=== PATIENT | female | born 1985 | race Caucasian/White ===

== ENCOUNTER → 2017-08-14 | Outpatient (REF) | payer BC ==
[2017-08-16 14:28] LABS: HPV HYBRID CAPTURE II Positive (Negative)
== END ==
LOC: M SFHCWAGY 16:03
DX: Z12.4 Encounter for screening for malignant neoplasm of cervix (principal)
CPT/HCPCS: G0123

== ENCOUNTER 2018-02-02 11:36 | Emergency (ER) | payer BC, OTHER ==
[2018-02-02 12:19] LABS: BASO % 0.2 % (0.0-1.0); EOS # 0.1 10^3/uL (0.0-0.50); EOS % 0.8 % (0.0-3.0); HEMATOCRIT 44.9 % (36.0-47.0); HEMOGLOBIN 15.2 g/dl (12.0-15.5); IMMATURE GRANULOCYTE % 0.3 % (0-3.0); LYMPH # 3.5 10^3/uL (1.5-4.5); LYMPH % 28.4 % (24.0-44.0); MEAN CORPUSCULAR HEMOGLOBIN 32.9 pg (27.0-33.0); MEAN CORPUSCULAR HGB CONC 33.9 g/dl (32.0-36.5); MEAN CORPUSCULAR VOLUME 97.2 fl (80.0-96.0); MONO # 0.6 10^3/uL (0.0-0.8); MONO % 5.2 % (0.0-5.0); NEUTROPHILS # 7.9 10^3/uL (1.8-7.7); NEUTROPHILS % 65.1 % (36.0-66.0); PLATELET COUNT, AUTOMATED 235 10^3/uL (150-450); RED BLOOD COUNT 4.62 10^6/uL (4.00-5.40); RED CELL DISTRIBUTION WIDTH 12.2 % (11.5-14.5); WHITE BLOOD COUNT 12.2 10^3/uL (4.0-10.0)
[2018-02-02 12:21] LABS: CONTROL LINE UCG INT CTR LINE PRESENT; URINE PREG TEST NEGATIVE (NEGATIVE)
[2018-02-02 12:25] LABS: CALCIUM OXALATE CRYSTALS RFX SMALL; KETONE, URINE AUTO RFX NEGATIVE (NEGATIVE); LEUKOCYTE ESTERASE UR AUTO RFX NEGATIVE (NEGATIVE); MUCUS, URINE RFX MODERATE (NEGATIVE); NITRITE, URINE AUTO RFX NEGATIVE (NEGATIVE); RBC, URINE AUTO RFX TNTC /HPF (0-3); SPECIFIC GRAVITY UR AUTO RFX 1.025 (1.002-1.035); SQUAM EPITHELIAL CELL UR AURFX 0 /HPF (0-6); WBC, URINE AUTO RFX 3 /HPF (0-3)
[2018-02-02 12:46] LABS: ALBUMIN 4.3 GM/DL (3.2-5.2); ALBUMIN/GLOBULIN RATIO 1.19 (1.00-1.93); ALKALINE PHOSPHATASE 66 U/L (45-117); ALT/SGPT 21 U/L (12-78); AMYLASE 46 U/L (25-115); ANION GAP 8 MEQ/L (8-16); AST/SGOT 16 U/L (7-37); BILIRUBIN,DIRECT < 0.1 MG/DL (0.0-0.2); BILIRUBIN,TOTAL 0.3 MG/DL (0.2-1.0); BLOOD UREA NITROGEN 13 MG/DL (7-18); CARBON DIOXIDE LEVEL 26 MEQ/L (21-32); CHLORIDE LEVEL 106 MEQ/L (98-107); CREATININE FOR GFR 0.76 MG/DL (0.55-1.30); GLOMERULAR FILTRATION RATE > 60.0 (>60); GLUCOSE, FASTING 101 MG/DL (70-100); LIPASE 122 U/L (73-393); POTASSIUM SERUM 3.6 MEQ/L (3.5-5.1); SODIUM LEVEL 140 MEQ/L (136-145); TOTAL PROTEIN 7.9 GM/DL (6.4-8.2)
[2018-02-02] MEDS: GASTROGRAFIN SOLUTION 30ML PO ×2 (13:00→13:32)
[2018-02-02] MEDS ORDERED: ISOVUE-370 76% 100ML VIAL (Q9967) As Ordered (14:24)
== END 2018-02-02 16:03 | disposition home or self-care (01) ==
LOC: M ED 11:36
DX: N20.0 Calculus of kidney (principal); Z88.0 Allergy status to penicillin; Z88.8 Allergy status to other drugs, medicaments and biological substances; F17.210 Nicotine dependence, cigarettes, uncomplicated
CPT/HCPCS: Q9963

== ENCOUNTER → 2018-02-03 | Outpatient (REF) | payer BC ==
[~2018-02-03] MED LIST: APAP500T10 PO; CENTCHW4 PO; CIPR500T39 PO; DOXY100C37 PO; FLAG500T PO; KETO10TAB PO; KLOR10TA76 PO; MAGN400C PO; NITR100C2 PO; OXYC1TAB23 PO; POTA10808; SENN1TAB2 PO; SIME180C PO; TAMS1CAP17 PO
== END ==
LOC: M LAB REF 09:24 → MERGE 09:24
PROVIDERS: ATTEND Emergency Medicine
DX: N20.0 Calculus of kidney (principal)

== ENCOUNTER 2018-02-05 09:20 | Day surgery (SDC) | payer BC ==
[2018-02-05] MEDS ORDERED: CIPROFLOXACIN 400 MG in APPROPRIATE DILUENT 1 EA IV (10:30)
[2018-02-05 10:59] LABS: PROTHROMBIN TIME 13.3 SECONDS (12.1-14.4)
[2018-02-05 11:00] LABS: PARTIAL THROMBOPLASTIN TIME 31.6 SECONDS (25.4-37.6)
[2018-02-05 11:14] LABS: CONTROL LINE UCG INT CTR LINE PRESENT; URINE PREG TEST NEGATIVE (NEGATIVE)
[2018-02-05] MEDS ORDERED: PROPOFOL 200 MG/20 ML VIAL As Ordered (12:39)
[2018-02-05] MEDS ORDERED: LIDOCAINE 2% INJ 100 MG/5 ML SDV (FOR ANES.) As Ordered (12:39)
[2018-02-05] MEDS ORDERED: dexameTHASONE 4 MG/ML 1ML VIAL (J1100) As Ordered (12:39)
[2018-02-05] MEDS ORDERED: ONDANSETRON 4MG/2ML VIAL (J2405) As Ordered (12:39)
[2018-02-05] MEDS ORDERED: MIDAZOLAM INJ 2 MG/2 ML VIAL (J2250) As Ordered (12:39)
[2018-02-05] MEDS ORDERED: fentaNYL 100 MCG/2 ML INJECTION (J3010) As Ordered (12:39)
[2018-02-05] MEDS ORDERED: KETAMINE HCL 200 MG/20 ML VIAL As Ordered (13:27)
[2018-02-05] MEDS ORDERED: LR 1,000 ML IV (14:30)
[2018-02-05] MEDS ORDERED: fentaNYL 100 MCG/2 ML INJECTION (J3010) IV (14:30)
[2018-02-05] MEDS ORDERED: PERCOCET 5MG/325MG TAB PO ×2 (14:30)
[2018-02-05] MEDS ORDERED: NORCO, ANEXSIA 5/325MG TABLET (HYDROcodone/ACETAMINOPHEN) PO (14:30)
[2018-02-05] MEDS ORDERED: ONDANSETRON 4MG/2ML VIAL (J2405) IV (14:30)
== END 2018-02-05 15:14 | disposition home or self-care (01) ==
LOC: M SDC 09:20
DX: N20.0 Calculus of kidney (principal); Z88.1 Allergy status to other antibiotic agents; Z88.8 Allergy status to other drugs, medicaments and biological substances; Z72.0 Tobacco use
CPT/HCPCS: 50590

== ENCOUNTER → 2018-02-13 | Outpatient (REF) | payer BC ==
[2018-02-13 18:18] LABS: APPEARANCE, URINE CLEAR (CLEAR); BACTERIA, URINE AUTO 1+ (NEGATIVE); BILIRUBIN, URINE AUTO NEGATIVE (NEGATIVE); BLOOD, URINE BLOOD NEGATIVE (NEGATIVE); COLOR, URINE YELLOW (YELLOW); GLUCOSE, URINE (UA) AUTO NEGATIVE (NEGATIVE); KETONE, URINE AUTO NEGATIVE (NEGATIVE); LEUKOCYTE ESTERASE, URINE AUTO 1+ (NEGATIVE); MUCUS, URINE SMALL (NEGATIVE); NITRITE, URINE AUTO NEGATIVE (NEGATIVE); PROTEIN, URINE AUTO NEGATIVE (NEGATIVE); RBC, URINE AUTO 3 /HPF (0-3); SPECIFIC GRAVITY URINE AUTO 1.015 (1.002-1.035); SQUAMOUS EPITHELIAL CELL UR AU 0 /HPF (0-6); UROBILINOGEN, URINE AUTO 0.2 mg/dL (0.0-2.0); WBC, URINE AUTO 10 /HPF (0-3)
== END ==
LOC: M SMT 16:38
PROVIDERS: ATTEND Nurse Practitioner Family
DX: R30.0 Dysuria (principal)

== ENCOUNTER 2018-02-16 12:25 | Day surgery (SDC) | payer BC ==
[~2018-02-16] VITALS: Ht 167.6 cm; Wt 59.1 kg
[~2018-02-16 12:25] MED LIST changes: -APAP500T10 PO; -CIPR500T39 PO; -KLOR10TA76 PO; -MAGN400C PO; -NITR100C2 PO; -OXYC1TAB23 PO; -POTA10808; -SENN1TAB2 PO; -SIME180C PO; -TAMS1CAP17 PO
[2018-02-16] MEDS ORDERED: NITR100C2 PO (12:38)
[2018-02-16] MEDS ORDERED: OXYC1TAB23 PO (12:38)
[2018-02-16] MEDS ORDERED: TAMS1CAP17 PO (12:38)
[2018-02-16] MEDS ORDERED: ONDANSETRON 4MG/2ML VIAL (J2405) As Ordered ONE ×2 (12:55→16:21)
[2018-02-16] MEDS ORDERED: MORPHINE 2 MG/ML 1ML SYRINGE (J2270) IV ONE (13:00)
[2018-02-16] MEDS ORDERED: KETOROLAC 30 MG/ML VIAL (J1885) IV ONE (13:00)
[2018-02-16] MEDS ORDERED: ONDANSETRON 4MG/2ML VIAL (J2405) IV ONE (13:00)
[2018-02-16 13:04] LABS: BASO % 0.3 % (0.0-1.0); EOS # 0.2 10^3/uL (0.0-0.50); EOS % 1.1 % (0.0-3.0); HEMATOCRIT 41.8 % (36.0-47.0); HEMOGLOBIN 14.1 g/dl (12.0-15.5); LYMPH # 3.6 10^3/uL (1.5-4.5); LYMPH % 25.1 % (24.0-44.0); MEAN CORPUSCULAR HEMOGLOBIN 32.6 pg (27.0-33.0); MEAN CORPUSCULAR HGB CONC 33.7 g/dl (32.0-36.5); MEAN CORPUSCULAR VOLUME 96.8 fl (80.0-96.0); MONO % 7.2 % (0.0-5.0); NEUTROPHILS # 9.4 10^3/uL (1.8-7.7); PLATELET COUNT, AUTOMATED 342 10^3/uL (150-450); RED BLOOD COUNT 4.32 10^6/uL (4.00-5.40); WHITE BLOOD COUNT 14.3 10^3/uL (4.0-10.0)
[2018-02-16 13:28] LABS: BLOOD UREA NITROGEN 10 MG/DL (7-18); CALCIUM LEVEL 8.5 MG/DL (8.5-10.1); CARBON DIOXIDE LEVEL 24 MEQ/L (21-32); CHLORIDE LEVEL 104 MEQ/L (98-107); CREATININE FOR GFR 0.86 MG/DL (0.55-1.30); GLOMERULAR FILTRATION RATE > 60.0 (>60); GLUCOSE, FASTING 125 MG/DL (70-100); POTASSIUM SERUM 3.8 MEQ/L (3.5-5.1); SODIUM LEVEL 137 MEQ/L (136-145)
[2018-02-16 13:44] LABS: URINE PREG TEST NEGATIVE (NEGATIVE)
--- NOTE | 2018-02-16 14:18 | REP ---
Clinical: Right flank pain. Technique: Axial noncontrast images from the lung bases to the pubic symphysis with coronal and sagittal re-formations. Findings: Moderate right-sided acute obstructive uropathy with hydroureteronephrosis appears to be secondary to a 7 mm calculus in the distal right ureter (images 105-108). 2 mm nonobstructing lower pole right calculus identified along with 2 mm nonobstructing lower pole left renal calculus. There also appears to be a 4 mm calculus suspected in the left ureteropelvic junction which should be correlated with left-sided symptoms. A 3 mm calculus in the left hemipelvis which was not identified on 02/02/2018 may represent a distal left ureteral stone as well. Liver, spleen, pancreas, gallbladder, and bilateral adrenal glands are normal. The enteric system is without obstruction or acute inflammatory process. Pelvis demonstrates collapsed bladder. Age-appropriate uterus/adnexa. No ascites. No free air. No adenopathy. Lung bases are clear. Skeletal structures are intact. Impression: 1. Acute right-sided obstructive uropathy with a 7 mm calculus in the distal right ureter. 2. Possible early obstruction in the left ureteropelvic junction with a 4 mm calculus and possible 3 mm distal left ureteral calculus. 3. Small nonobstructing intrarenal calculi also noted. Electronically Signed by Matthew Cardenas MD 02/16/2018 02:10 P
[2018-02-16] MEDS ORDERED: CONRAY-60 60% 50ML VIAL (Q9961) As Ordered ONE (15:20)
[2018-02-16] MEDS ORDERED: LIDOCAINE 2% INJ 100 MG/5 ML SDV (FOR ANES.) As Ordered ONE (15:21)
[2018-02-16] MEDS ORDERED: PROPOFOL 200 MG/20 ML VIAL As Ordered ONE (15:21)
[2018-02-16] MEDS ORDERED: MIDAZOLAM INJ 2 MG/2 ML VIAL (J2250) As Ordered ONE (15:22)
[2018-02-16] MEDS ORDERED: fentaNYL 100 MCG/2 ML INJECTION (J3010) As Ordered ONE ×2 (15:22→16:20)
[2018-02-16] MEDS ORDERED: CIPROFLOXACIN/D5W 400 MG/200 ML BAG (J0744) As Ordered ONE (15:31)
[2018-02-16] MEDS ORDERED: LIDOCAINE 2% 5ML JELLY UROJET As Ordered ONE (15:37)
[2018-02-16] MEDS ORDERED: CIPROFLOXACIN 400 MG in APPROPRIATE DILUENT 1 EA IV ONE (15:45)
[2018-02-16] MEDS ORDERED: GENTAMICIN 80 MG in APPROPRIATE DILUENT 1 EA IV ONE (15:45)
[2018-02-16] MEDS ORDERED: GENTAMICIN SULF INJ 80MG/2ML VIAL (J1580) As Ordered ONE (16:02)
[2018-02-16] MEDS ORDERED: dexameTHASONE 4 MG/ML 1ML VIAL (J1100) As Ordered ONE (16:21)
[2018-02-16] MEDS ORDERED: METOCLOPRAMIDE INJ 10MG/2ML VIAL (J2765) As Ordered ONE (16:21)
[2018-02-16] MEDS ORDERED: KETOROLAC 60 MG/2 ML VIAL (J1885) As Ordered ONE (16:21)
[2018-02-16] MEDS ORDERED: ACETAMINOPHEN 500 MG TAB PO SCH (18:00)
[2018-02-16] MEDS ORDERED: ONDANSETRON 4MG/2ML VIAL (J2405) IV PRN (18:00)
[2018-02-16] MEDS ORDERED: MEPERIDINE INJ 25 MG/ML VIAL (J2175) IV PRN (18:00)
[2018-02-16] MEDS ORDERED: NORCO, ANEXSIA 5/325MG TABLET (HYDROcodone/ACETAMINOPHEN) PO PRN (18:00)
[2018-02-16] MEDS ORDERED: oxyCODONE 5MG TAB PO PRN (18:00)
[2018-02-16] MEDS ORDERED: POTASSIUM CITRATE 1080 MG (10MEQ) TAB PO SCH ×2 (18:00→19:30)
[2018-02-16] MEDS ORDERED: fentaNYL 100 MCG/2 ML INJECTION (J3010) IV PRN (18:00)
--- NOTE | 2018-02-16 18:22 | ROOPDOC ---
[facility] Report Of Operation Report of Operation DATE OF PROCEDURE: 02/16/18 PREPROCEDURE DIAGNOSES: right ureteral stones x3 seen on 02/16/18 CT s/p ESWL 02/05/18 (Dr. Ngo). POSTPROCEDURE DIAGNOSES: same. PROCEDURE: right ureteral stone manipulation (1 stone removed for analysis); cysto retrograde pyelogram; balloon dilation of distal ureter; stent placement 5x 22-30cm stent. SURGEON: Joelle Urban MD MPH PING ANESTHESIA: GET. Antibiotics: Gentamicin 80mg IV OCTOR and Cipro 400mf IV OCTOR ESTIMATED BLOOD LOSS: Approximately <10 mL. COMPLICATIONS: none FINDINGS: 1. ureteral swelling 2. distal ureteral stone 3. ureteral stricture and tortuosity DESCRIPTION OF PROCEDURE: After history and physical, informed consent, the patient was taken to the room for the procedure. She laid supine for intubation and was then placed in lithotomy position, prepped and draped for cystoscopy, retrograde pyelogram, stent placed after balloon dilation and stone manipulation. A 22 f cystocope was placed in the urethra. A hybrid superstiff wire 0.038 was placed up the ureter then the 12f balloon dilator was placed over to dilate the distal ureter. After 5min the balloon dilator was removed then along side wire a 7f semirigid scope was placed up the ureter to just proximal UVJ where alot of swelling was seen and the ureteroscope could not advance. One stone was visualized but 3+ where seen in the distal ureter. The stone passed the stone basket (0 tip Bard) was used for the removal of one of 3-4 stones via ureteroscopy. There were challenges getting 5 stent up so a 0.035 sensor was placed via ureteroscopy next to the previously placed wire. Then the wire was used to advancement of the 5 x 22-30 cm stent using Seldinger technique under direct visualization and fluoroscopy. Both wires were removed and the stent upper and lower curl where visualized under fluoroscopy. No string was left attached to the string. The patient tolerated the procedure well and was taken to the recovery room in stable condition. Pt voided meyer urine (approximately 200ml), remained afebrile , was not tachycardic during recovery and tolerated po in the recovery. Her and child were present for discussion regarding her findings and post op care. post operative kub written she was discharged on cipro/magoxide/urocitk/oxycodone/acetaminophen on written scripts f/u with Dr. Ngo 2 weeks for surgical manipulation of the distal ureter for stone retrieval Joelle Urban MD MPH Joelle Shi MD Feb 16, 2018 17:59
[2018-02-16 18:30] VITALS: BP 125/72
--- NOTE | 2018-02-16 18:43 | REP ---
Clinical: Stent placement. Obstructive uropathy. Technique: Single supine view of the abdomen and pelvis. Findings: Right ureteral stent in satisfactory position. The bowel gas pattern suggests fecal stasis without obstruction or perforation. No organomegaly. Double structures intact. Impression: Right ureteral stent. Electronically Signed by Matthew Cardenas MD 02/16/2018 06:35 P
[2018-02-16 19:00] VITALS: BP 111/54
[2018-02-16] MEDS ORDERED: LACTOBACILLUS ACIDOPHILUS CAP (BACID) PO SCH (19:30)
[2018-02-16] MEDS ORDERED: CIPROFLOXACIN 500 MG TAB PO SCH (19:30)
[2018-02-16 20:00] VITALS: BP 124/68
--- NOTE | 2018-02-16 21:18 | REP ---
Clinical: Obstructive uropathy. Technique: Intraoperative fluoroscopic imaging using portable C-arm technique. Findings: Multiple images demonstrate the patient to be status post right ureteral stent placement. Total fluoroscopic time 1 minute 8 seconds. Impression: Status post satisfactory right ureteral stent placement. Electronically Signed by Matthew Cardenas MD 02/16/2018 09:10 P
[2018-02-17] MEDS ORDERED: CIPROFLOXACIN 500 MG TAB PO SCH (06:00)
[2018-02-17] MEDS ORDERED: LACTOBACILLUS ACIDOPHILUS CAP (BACID) PO SCH (09:00)
[2018-02-17] MEDS ORDERED: MAGNESIUM OXIDE 400 MG TAB (MAG-OX) PO SCH (09:00)
[2018-02-20] MEDS ORDERED: CIPR500T39 (23:24)
[2018-02-20] MEDS ORDERED: POTA10808 (23:24)
[2018-02-20] MEDS ORDERED: SENN1TAB2 PO (23:24)
[2018-02-20] MEDS ORDERED: MAGN400C PO (23:24)
[2018-02-20] MEDS ORDERED: KLOR10TA76 PO (23:24)
[2018-02-21] MEDS ORDERED: SIME180C PO (04:07)
== END 2018-02-16 20:45 | disposition home or self-care (01) ==
LOC: M ED 12:25 → M SDC 14:45 → M PED 18:30 → M SDC 20:45
PROVIDERS: ATTEND Urology Pediatric Urology
DX: N20.1 Calculus of ureter (principal); Z88.0 Allergy status to penicillin; M79.7 Fibromyalgia; R19.7 Diarrhea, unspecified
CPT/HCPCS: 52332; 52341; 74018; 74176; 74420; 80048; 81001; 82360; 84703; 85025; 88300; 96374; 96375; 99284; C1769; C2617; J0744; J1100; J1580; J1885; J2250; J2270; J2405; J2765; J3010; Q9961

== ENCOUNTER → 2018-02-20 | Outpatient (CLI) | payer BC ==
[~2018-02-20] MED LIST changes: +APAP500T10 PO; +CIPR500T39 PO; +KLOR10TA76 PO; +MAGN400C PO; +NITR100C2 PO; +OXYC1TAB23 PO; +POTA10808; +SENN1TAB2 PO; +SIME180C PO; +TAMS1CAP17 PO
--- NOTE | 2018-02-20 16:07 | REP ---
REASON FOR EXAM: Status-post double pig-tailed catheter placement on the right. The double pig-tailed catheter seen on the right is unchanged. There are no significant changes from the prior exam of 02/16/2018. There is a small calcification seen adjacent to the distal aspect of the stent which is unchanged. IMPRESSION:No significant change. Electronically Signed by Osito Jacobo DO 02/20/2018 04:57 P
[2018-02-20 18:05] LABS: IONIZED CALCIUM 4.7 MG/DL (4.5-5.3)
[2018-02-20 18:30] LABS: BASO # 0.1 10^3/uL (0.0-0.2); BASO % 0.3 % (0.0-1.0); EOS # 0.2 10^3/uL (0.0-0.50); EOS % 1.4 % (0.0-3.0); HEMATOCRIT 44.2 % (36.0-47.0); HEMOGLOBIN 14.8 g/dl (12.0-15.5); LYMPH # 3.7 10^3/uL (1.5-4.5); LYMPH % 25.2 % (24.0-44.0); MEAN CORPUSCULAR HEMOGLOBIN 32.9 pg (27.0-33.0); MEAN CORPUSCULAR HGB CONC 33.5 g/dl (32.0-36.5); MEAN CORPUSCULAR VOLUME 98.2 fl (80.0-96.0); MONO % 6.6 % (0.0-5.0); NEUTROPHILS # 9.8 10^3/uL (1.8-7.7); NEUTROPHILS % 66.1 % (36.0-66.0); PLATELET COUNT, AUTOMATED 363 10^3/uL (150-450); WHITE BLOOD COUNT 14.8 10^3/uL (4.0-10.0)
[2018-02-20 18:39] LABS: INR 0.99; PROTHROMBIN TIME 13.1 SECONDS (12.1-14.4)
[2018-02-20 18:40] LABS: PARTIAL THROMBOPLASTIN TIME 31.4 SECONDS (25.4-37.6)
[2018-02-20 18:53] LABS: HEMOGLOBIN A1c 5.9 %
[2018-02-20 18:56] LABS: AMORPHOUS SEDIMENT SMALL (NEGATIVE); APPEARANCE, URINE CLOUDY (CLEAR); BACTERIA, URINE AUTO 1+ (NEGATIVE); BILIRUBIN, URINE AUTO NEGATIVE (NEGATIVE); BLOOD, URINE BLOOD 2+ (NEGATIVE); COLOR, URINE YELLOW (YELLOW); GLUCOSE, URINE (UA) AUTO NEGATIVE (NEGATIVE); KETONE, URINE AUTO NEGATIVE (NEGATIVE); LEUKOCYTE ESTERASE, URINE AUTO 2+ (NEGATIVE); MUCUS, URINE SMALL (NEGATIVE); NITRITE, URINE AUTO NEGATIVE (NEGATIVE); PROTEIN, URINE AUTO 2+ mg/dL (NEGATIVE); RBC, URINE AUTO TNTC /HPF (0-3); SPECIFIC GRAVITY URINE AUTO 1.013 (1.002-1.035); SQUAMOUS EPITHELIAL CELL UR AU 1 /HPF (0-6); UROBILINOGEN, URINE AUTO 0.2 mg/dL (0.0-2.0); WBC, URINE AUTO 21 /HPF (0-3)
[2018-02-20 19:22] LABS: ALBUMIN 4.5 GM/DL (3.2-5.2); ALT/SGPT 26 U/L (12-78); BILIRUBIN,TOTAL 0.3 MG/DL (0.2-1.0); BLOOD UREA NITROGEN 10 MG/DL (7-18); CALCIUM LEVEL 9.4 MG/DL (8.5-10.1); CARBON DIOXIDE LEVEL 29 MEQ/L (21-32); CHLORIDE LEVEL 101 MEQ/L (98-107); CREATININE FOR GFR 0.85 MG/DL (0.55-1.30); GLOMERULAR FILTRATION RATE > 60.0 (>60); GLUCOSE, FASTING 105 MG/DL (70-100); POTASSIUM SERUM 4.4 MEQ/L (3.5-5.1); SODIUM LEVEL 140 MEQ/L (136-145); TOTAL PROTEIN 7.9 GM/DL (6.4-8.2)
== END ==
LOC: M SMT 15:10
PROVIDERS: ATTEND Urology Pediatric Urology
DX: N20.0 Calculus of kidney (principal); N20.1 Calculus of ureter; N13.9 Obstructive and reflux uropathy, unspecified

== ENCOUNTER → 2018-02-24 | Outpatient (CLI) | payer BC ==
[~2018-02-24] MED LIST changes: +FUROSEMIDE 20 MG/2 ML VIAL (J1940) As Ordered ONE
--- NOTE | 2018-02-24 11:33 | REP ---
Nuclear renal scintigraphy with differential flow and function analysis: Post Lasix renography: History: Obstructive uropathy. Comparison CT study February 21, 2018. Technique: 8.8 mCi technetium 99m MAG 3 is injected and a posterior flow and excretory phase images are acquired. Renal cortical regions of interest are drawn and time activity curves are plotted for renal functional analysis. 20 mg of intravenous Lasix is given and post Lasix renography is carried out. Scintigraphic findings: Posterior flow study shows normal symmetric renal bed perfusion. Excretory phase images show normal symmetric function. No intrarenal mass is seen. There is mild fullness of the intrarenal collecting system bilaterally but this washes out bilaterally and symmetrically. Differential renal function analysis is essentially normal with 57% of renal cortical counts coming from the left kidney and 43% from the right. Time to peak activity is normal bilaterally at 2.0 minutes. Time to half max activity is normal bilaterally at 6.7 minutes on the left and 7.1 minutes on the right. Post Lasix renography demonstrates bilateral washout of the renal collecting systems. Time to half Lasix activity was calculable on the left at 13.7 minutes. On the right the Lasix washout curve was flatter, but there was no significant hydronephrosis at its onset. Impression: Some fullness of the intrarenal collecting system bilaterally with no evidence of significant obstructive uropathy at this time. Electronically Signed by Chapo Willson MD 02/24/2018 01:49 P
== END ==
LOC: M RAD 07:38
PROVIDERS: ATTEND Urology Pediatric Urology
DX: N13.0 Hydronephrosis with ureteropelvic junction obstruction (principal)
CPT/HCPCS: 78708; A9562; J1940

== ENCOUNTER → 2018-02-25 | Outpatient (CLI) | payer BC ==
[~2018-02-25] MED LIST changes: -FUROSEMIDE 20 MG/2 ML VIAL (J1940) As Ordered ONE
--- NOTE | 2018-02-25 17:06 | REP ---
CT ABDOMEN AND PELVIS WITHOUT CONTRAST: CT abdomen and pelvis performed without oral or IV contrast. Sagittal and coronal reconstruction images are performed. COMPARISON: Multiple prior exams, most recently 02/21/2018. Visualized lung bases are clear. Liver demonstrates a tiny cyst superiorly in the right lobe. Gallbladder is grossly unremarkable. Spleen, adrenals, and pancreas are unremarkable. Right kidney demonstrates no overt hydronephrosis. There appears to be a small extrarenal pelvis. There is a right ureteral stent with the proximal end coiled in the right renal pelvis and the distal end coiled in the urinary bladder. Left kidney demonstrates two intrarenal stones inferiorly measuring 5 mm and 2 mm in diameter. There is mild left-sided pelviectasis. I do not see evidence of hydroureter bilaterally. There does appear to be a 2 mm stone in the distal left ureter. No bladder calculi are seen. There is no abdominal aortic aneurysm. No definite adenopathy is seen. I see no free air or free fluid. No pelvic mass is seen. IMPRESSION: Right ureteral stent appears to be in good position. No overt hydronephrosis on the right. Left kidney demonstrates two subcentimeter stones inferiorly within the collecting system. There is mild left-sided pelviectasis without definite hydroureter. There does appear to be a 2 mm stone in the distal left ureter. Electronically Signed by Shaw Gill MD 02/25/2018 07:58 P
== END ==
LOC: M RAD 16:17
PROVIDERS: ATTEND Urology Pediatric Urology
DX: N13.9 Obstructive and reflux uropathy, unspecified (principal); N20.1 Calculus of ureter; N20.0 Calculus of kidney; Z96.0 Presence of urogenital implants

== ENCOUNTER 2018-02-27 08:18 | Day surgery (SDC) | payer BC ==
[~2018-02-27] VITALS: Ht 167.6 cm; Wt 58.9 kg
[~2018-02-27 08:18] MED LIST changes: +CIPROFLOXACIN 400 MG in APPROPRIATE DILUENT 1 EA IV ONE; +GENTAMICIN 80 MG in APPROPRIATE DILUENT 1 EA IV ONE; +LR 1,000 ML IV ONE
[2018-02-27] MEDS ORDERED: GENTAMICIN SULF INJ 80MG/2ML VIAL (J1580) As Ordered ONE (09:02)
[2018-02-27 09:22] LABS: URINE PREG TEST NEGATIVE (NEGATIVE)
[2018-02-27] MEDS ORDERED: MIDAZOLAM INJ 2 MG/2 ML VIAL (J2250) As Ordered ONE (09:22)
[2018-02-27] MEDS ORDERED: PROPOFOL 200 MG/20 ML VIAL As Ordered ONE ×2 (09:22→10:50)
[2018-02-27] MEDS ORDERED: ROCURONIUM BROMIDE 50 MG/5 ML VIAL As Ordered ONE ×2 (09:22→11:50)
[2018-02-27] MEDS ORDERED: LIDOCAINE 2% INJ 100 MG/5 ML SDV (FOR ANES.) As Ordered ONE (09:22)
[2018-02-27] MEDS ORDERED: fentaNYL 100 MCG/2 ML INJECTION (J3010) As Ordered ONE ×3 (09:23→12:04)
[2018-02-27] MEDS ORDERED: CONRAY-60 60% 50ML VIAL (Q9961) As Ordered ONE ×2 (10:28→11:16)
[2018-02-27] MEDS ORDERED: ONDANSETRON 4MG/2ML VIAL (J2405) As Ordered ONE (10:50)
[2018-02-27] MEDS ORDERED: dexameTHASONE 4 MG/ML 1ML VIAL (J1100) As Ordered ONE (10:50)
[2018-02-27] MEDS ORDERED: PHENYLephrine HCL 500 MCG/5 ML (100MCG/ML) SYRINGE (J2370) As Ordered ONE (10:50)
[2018-02-27] MEDS ORDERED: SUGAMMADEX SODIUM 500 MG/5 ML VIAL (BRIDION) As Ordered ONE ×2 (11:07→11:09)
[2018-02-27] MEDS ORDERED: KETOROLAC 60 MG/2 ML VIAL (J1885) As Ordered ONE (11:25)
[2018-02-27] MEDS ORDERED: BACITRACIN OINT 30GM As Ordered ONE (13:03)
[2018-02-27] MEDS ORDERED: MEPERIDINE INJ 25 MG/ML VIAL (J2175) As Ordered ONE (13:49)
--- NOTE | 2018-02-27 13:50 | REP ---
C-ARM VIEWS DURING RIGHT URETERAL STENT PLACEMENT: Multiple C-ARM views are performed. Contrast partially opacifies the right pelvicalyceal system. A wire is initially seen in the right ureter and pelvicalyceal system. A right ureteral stent is placed with the proximal end coiled in the right renal pelvis and the distal end coiled in the region of the urinary bladder. Left ureter is also catheterized during the exam and there is opacification of the left pelvicalyceal system which appears mildly dilated with no persistent filling defect. 4 minutes and 36 seconds of fluoroscopy time was utilized. Electronically Signed by Shaw Gill MD 02/27/2018 05:28 P
--- NOTE | 2018-02-27 13:55 | ROOPDOC ---
[facility] Report Of Operation Report of Operation DATE OF PROCEDURE: 02/27/18 PREPROCEDURE DIAGNOSES: RIGHT and LEFT distal URETERAL STONE; LEFT LOWER POLE STONE; OBSTRUCTIVE UROPATHY; 43% function on the RIGHT and 57% function on the LEFT POSTPROCEDURE DIAGNOSES: SAME. PROCEDURE: Bilateral cystoscopy/ureteroscopy/retrograde pyelogram/left laser lithotripsy in the renal pelvis; bilateral stent placement (RIGHT URETERAL STENT 6FX 22-30CM and LEFT URETERAL STENT 6FX 22-32CM); excision of left external genitalia wart. SURGEON: KEREN ALONZO MD MPH PING ANESTHESIA: GET/Neuromuscular blockade ESTIMATED BLOOD LOSS: Approximately <10 mL. COMPLICATIONS: NONE. REMARKS/FINDINGS: DISTAL RIGHT AND LEFT URETERAL STRICTURE REQUIRING BALLOON DILATION SERIALLY ON THE RIGHT WITH 4cm length 15F BALLOON and LEFT URETERAL STONE (15F x 10cm) DESCRIPTION OF PROCEDURE: After informed consent pt was taken to the operating room where routine time out was performed for all care stakeholders, who were in agreement. The patient was placed in lithotomy position, prepped and draped and 21 f cystoscope was introduced into the bladder. The ureteral (right) stent was pulled with the flexible forceps to the meatus and motion hybrid wire was placed up the ureter into the renal pelvis. Semi rigid ureteroscope was introduced along side the wire up the ureteral stone just beyond a distal ureteral stricture. Using the nitinol basket as a guide next the safety wire into the normal part of the ureter the ureteroscope travelled to the stone in the ureter and x2 stones were identified and the nitinol basket was retrieved it (one at a time). The the ureteroscope was used to travel up to the UPJ (with some difficulty by the stricture) using and additional wire along the safety wire. No additional stones in the right ureter were visualized. CT confirmed no additional stones in the kidney. At this time the the 6fx 22-30cm was placed over one of the wire after balloon dilating the distal ureter stricture with Olympus 15f x 4cm balloon dilator x3 (5min each). The retrograde completed shows improvement of the stricture. Attention was turned to the left ureter which was intubated with 5 f open ended catheter and motion wire. The distal ureter was dilated with 15f x 10cm balloon (Olympus) dilator for 5min. We were then able to remove the dilator. The ureteroscope was then used to travel up the proximal ureter. 4 small stones past spontaneously from the ureter and landed in the bladder. The ureteroscope (through the access sheath) was traveled up the ureter up to the lower pole where a stone was seen hidden in calyx. A 200 laser fiber was also placed through the ureteroscope once the reached the stone. The laser was set to 10 then 20 martin (1 or 2j x 10hz) and the stone was broken into smaller pieces. One larger piece stone was retrieved using the 0 tip nitinol basket, the remainder were poorly visualized and thus the ureteroscope was removed leaving a motion wire up the renal pelvis through the access sheath and the stent 6f [id number] was placed over the wire then both right and left ureteral stent strings were secured to her inner right thigh with Mastisol, steri strips and Tegaderm. The patient bladder was drained with cystoscope, using the same cystoscope given the external wart was used to visualize the cervix and vagina which were normal. All visualization was direct through the camera or indirect with fluoroscopy. During the procedure the patient was noted to have left external genitalia wart. The was asked permission to remove it. He agreed and it was removed using fine hemostat then exised with with cautery and skin was reapproximated with 3-0 plain chromic with vertical mattresses x 3 and then running locking over top. Dermabond was placed on the wound once it was clear hemostasis was achieved. The patient tolerated the procedure well and was taken to the recovery room in excellent condition. At the end of the procedure the findings and plan of care was discussed with . DISCHARGE PLAN: D/C TO HOME WITH BACTRIM/TYLENOL AND OXYCODONE. F/U week of 03/13 so the stents may be removed and wound may be visualized. Recommend CT scan abd/pelvis without contrast early that week before the stent is removed to ensure the stone particularly from the left side are clear, since not all of those stones could be retrieved. Keren Alonzo MD MPH Keren Shi MD Feb 27, 2018 13:26
[2018-02-27] MEDS: MEPERIDINE INJ 25 MG/ML VIAL (J2175) IV PRN ×2 (14:00→14:15)
[2018-02-27] MEDS ORDERED: fentaNYL 100 MCG/2 ML INJECTION (J3010) IV PRN (14:15)
[2018-02-27] MEDS ORDERED: ONDANSETRON 4MG/2ML VIAL (J2405) IV PRN (14:15)
[2018-02-27] MEDS ORDERED: LR 1,000 ML IV SCH (14:15)
[2018-02-27] MEDS ORDERED: METOCLOPRAMIDE INJ 10MG/2ML VIAL (J2765) IV PRN (14:15)
[2018-02-27] MEDS ORDERED: PERCOCET 5MG/325MG TAB PO PRN (14:15)
--- NOTE | 2018-02-27 14:50 | REP ---
SUPINE ABDOMEN: 02/27/2018. Comparison: Retrograde pyelogram 02/27/2018, CT 02/25/2018, KUB, 02/16/2018. Clinical history: ureteral stents. Findings: There are now two internal ureteral stents coiled proximally in the renal pelves and distally in the bladder. A few pelvic calcifications are noted which may be phleboliths or within the bladder. I do not see definite calcification along the course of the ureteral stents nor a radiographically visible calcifications in the renal pelves. A subtle lower pole stone may be suspected to correspond with the CT 2 days ago showing lower pole stones on that left side. No other finding. Electronically Signed by Kamlesh Griffiths MD 02/27/2018 05:02 P
[2018-02-27 16:30] VITALS: BP 110/63
[2018-03-09 10:47] LABS: CA Oxalate Dihy 30 % (.); COMMENT Note: (.); Ca Ox Monohydrate 20 % (.)
== END 2018-02-27 16:31 | disposition home or self-care (01) ==
LOC: M SDC 08:18
PROVIDERS: ATTEND Urology Pediatric Urology
DX: N20.1 Calculus of ureter (principal); B07.8 Other viral warts; Z88.0 Allergy status to penicillin; Z79.899 Other long term (current) drug therapy; F17.210 Nicotine dependence, cigarettes, uncomplicated
CPT/HCPCS: 11420; 52332; 52352; 52356; 74018; 74420; 82360; 84703; 87086; 88300; 88305; C1769; C1894; C2617; J0744; J1100; J1580; J1885; J2175; J2250; J2370; J2405; J2765; J3010; Q9961

== ENCOUNTER → 2018-03-17 | Outpatient (CLI) | payer BC ==
[~2018-03-17] MED LIST changes: -CIPROFLOXACIN 400 MG in APPROPRIATE DILUENT 1 EA IV ONE; -GENTAMICIN 80 MG in APPROPRIATE DILUENT 1 EA IV ONE; -LR 1,000 ML IV ONE
--- NOTE | 2018-03-17 09:47 | REP ---
Clinical: Nephrolithiasis. Technique: Single supine view of the abdomen and pelvis. Findings: Bilateral ureteral stents in satisfactory position. Small calculi in the lower pole left kidney are again suggested measuring up to approximately 3 mm. Further evaluation of the urinary tract system is significantly limited due to overlying bowel gas. No evidence for bowel obstruction. No organomegaly. Skeletal structures stable and intact. Impression: Small residual left intrarenal calculi up to 3 mm. Further evaluation is limited due to overlying bowel gas. Electronically Signed by Matthew Cardenas MD 03/17/2018 09:39 A
== END ==
LOC: M SMT 09:19
PROVIDERS: ATTEND Urology Pediatric Urology
DX: N20.2 Calculus of kidney with calculus of ureter (principal)

== ENCOUNTER → 2018-06-02 | Outpatient (REF) | payer BC ==
[~2018-06-02] MED LIST changes: -SENN1TAB2 PO; +SENN1TAB40 PO
[2018-06-02 13:48] LABS: AMORPHOUS SEDIMENT MODERATE (NEGATIVE); APPEARANCE, URINE TURBID (CLEAR); BACTERIA, URINE AUTO NEGATIVE (NEGATIVE); BILIRUBIN, URINE AUTO NEGATIVE (NEGATIVE); BLOOD, URINE BLOOD NEGATIVE (NEGATIVE); COLOR, URINE YELLOW (YELLOW); GLUCOSE, URINE (UA) AUTO NEGATIVE (NEGATIVE); KETONE, URINE AUTO NEGATIVE (NEGATIVE); LEUKOCYTE ESTERASE, URINE AUTO NEGATIVE (NEGATIVE); MUCUS, URINE SMALL (NEGATIVE); NITRITE, URINE AUTO NEGATIVE (NEGATIVE); PROTEIN, URINE AUTO NEGATIVE (NEGATIVE); RBC, URINE AUTO 0 /HPF (0-3); SPECIFIC GRAVITY URINE AUTO 1.013 (1.002-1.035); SQUAMOUS EPITHELIAL CELL UR AU 0 /HPF (0-6); UROBILINOGEN, URINE AUTO 0.2 mg/dL (0.0-2.0); WBC, URINE AUTO 1 /HPF (0-3)
== END ==
LOC: M SMT 13:13
PROVIDERS: ATTEND Nurse Practitioner Family
DX: N20.0 Calculus of kidney (principal)

== ENCOUNTER → 2018-06-02 | Outpatient (CLI) | payer BC ==
--- NOTE | 2018-06-02 10:04 | REP ---
KUB: Single view. History: Kidney stone. Comparison KUB study is from March 17, 2018. Comparison CT study February 25, 2018. Findings: The previously noted bilateral ureteral stents have been withdrawn. The bowel gas pattern is normal. There is a small phlebolith in the right pelvis. Above and lateral to this, there is a 9 mm oval-shaped opacity in the right pelvis which was not previously visible. Its location could place along the course of the ureter but it was not visible on recent CT or radiographs and I suspect that it is artifactual. There is questionable 2-3 mm calcification at the lower pole of the left kidney. No other abnormality. Impression: 9 mm calcific opacity right pelvis uncertain significance, new from recent prior studies, possibly artifactual. Question tiny intrarenal calculus lower pole left kidney. Electronically Signed by Chapo Willson MD 06/02/2018 10:25 A
== END ==
LOC: M SMT 08:20
PROVIDERS: ATTEND Nurse Practitioner Family
DX: N20.0 Calculus of kidney (principal)

== ENCOUNTER → 2018-06-09 | Outpatient (CLI) | payer BC ==
--- NOTE | 2018-06-09 08:04 | REP ---
CT abdomen and pelvis without IV or oral contrast: Renal stone protocol. History: Kidney stone. Comparison study: February 25, 2018. CT findings: Preliminary digital billing coordinator radiograph demonstrates an unremarkable bowel gas pattern. The lung bases are clear. There is no evidence of pleural effusion or upper abdominal ascites. A tiny cyst is seen in the liver. No focal hepatic lesion is seen. Spleen is unremarkable. No adrenal lesions are seen. No pancreatic or gallbladder abnormality. Previously noted right double pigtail ureteral stent has been withdrawn in the interval since the February 25, 2018 study. There is no evidence of hydronephrosis or ureteral calculus on the right. No hydronephrosis on the left. There are two intrarenal calculi again noted in the lower pole of the left kidney. The largest of these measures 4 mm in greatest diameter. No left ureteral stone is seen. No bladder calculus is observed. No uterine or ovarian abnormality is seen. Urinary bladder is intact. A normal appendix is visible in the right lower quadrant. Small and large intestinal bowel loops are unremarkable. Impression: There are two small intrarenal calculi in the lower pole of the left kidney. No hydronephrosis is seen on either side. No right-sided calculi or bladder calculi seen. Normal appendix. No acute abnormality. Electronically Signed by Chapo Willson MD 06/09/2018 09:00 A
== END ==
LOC: M RAD 07:00
PROVIDERS: ATTEND Nurse Practitioner Family
DX: N20.0 Calculus of kidney (principal)

== ENCOUNTER → 2018-06-10 | Outpatient (REF) | payer BC ==
[2018-06-10 15:33] LABS: ALT/SGPT 27 U/L (12-78); BILIRUBIN,TOTAL 0.7 MG/DL (0.2-1.0); BLOOD UREA NITROGEN 11 MG/DL (7-18); CALCIUM LEVEL 9.3 MG/DL (8.5-10.1); CARBON DIOXIDE LEVEL 28 MEQ/L (21-32); CHLORIDE LEVEL 106 MEQ/L (98-107); CREATININE FOR GFR 0.77 MG/DL (0.55-1.30); GLOMERULAR FILTRATION RATE > 60.0 (>60); GLUCOSE, FASTING 102 MG/DL (70-100); POTASSIUM SERUM 5.6 MEQ/L (3.5-5.1); SODIUM LEVEL 139 MEQ/L (136-145); TOTAL PROTEIN 7.2 GM/DL (6.4-8.2)
== END ==
LOC: M LABDRWAD 12:32
PROVIDERS: ATTEND Nurse Practitioner Family
DX: N20.0 Calculus of kidney (principal)

== ENCOUNTER → 2018-06-17 | Outpatient (REF) | payer BC ==
[2018-06-17 21:34] LABS: BASO % 0.3 % (0.0-1.0); EOS # 0.1 10^3/uL (0.0-0.50); EOS % 0.9 % (0.0-3.0); HEMATOCRIT 43.6 % (36.0-47.0); HEMOGLOBIN 14.7 g/dl (12.0-15.5); LYMPH # 4.2 10^3/uL (1.5-4.5); MEAN CORPUSCULAR HGB CONC 33.7 g/dl (32.0-36.5); MONO # 0.8 10^3/uL (0.0-0.8); NEUTROPHILS # 6.7 10^3/uL (1.8-7.7); NEUTROPHILS % 56.7 % (36.0-66.0); PLATELET COUNT, AUTOMATED 244 10^3/uL (150-450); RED BLOOD COUNT 4.45 10^6/uL (4.00-5.40); WHITE BLOOD COUNT 11.9 10^3/uL (4.0-10.0)
[2018-06-17 21:42] LABS: ALBUMIN 4.8 GM/DL (3.2-5.2); ALT/SGPT 25 U/L (12-78); BILIRUBIN,TOTAL 0.5 MG/DL (0.2-1.0); BLOOD UREA NITROGEN 13 MG/DL (7-18); CALCIUM LEVEL 9.6 MG/DL (8.5-10.1); CARBON DIOXIDE LEVEL 25 MEQ/L (21-32); CHLORIDE LEVEL 107 MEQ/L (98-107); CHOLESTEROL LEVEL 206 MG/DL (<200); CREATININE FOR GFR 0.84 MG/DL (0.55-1.30); FREE T4 1.38 NG/DL (0.76-1.46); GLOMERULAR FILTRATION RATE > 60.0 (>60); GLUCOSE, FASTING 85 MG/DL (70-100); HDL CHOLESTEROL 76 MG/DL (>40); LDL CHOLESTEROL 119 MG/DL (<100); NON-HDL-C 130 MG/DL; POTASSIUM SERUM 3.9 MEQ/L (3.5-5.1); SODIUM LEVEL 139 MEQ/L (136-145); THYROID STIMULATING HORMONE 0.718 uIU/ML (0.358-3.740); TOTAL PROTEIN 7.8 GM/DL (6.4-8.2); TRIGLYCERIDES LEVEL 53 MG/DL (<150)
== END ==
LOC: M LABDRWAD 19:35
PROVIDERS: ATTEND Family Medicine
DX: Z13.29 Encounter for screening for other suspected endocrine disorder (principal); Z13.220 Encounter for screening for lipoid disorders; Z13.0 Encounter for screening for diseases of the blood and blood-forming organs and certain disorders involving the immune mechanism

== ENCOUNTER → 2018-08-10 | Outpatient (REF) | payer BC ==
[2018-08-12 16:11] LABS: HPV HYBRID CAPTURE II Negative (Negative)
== END ==
LOC: M SFHCWAGY 10:08
PROVIDERS: ATTEND Nurse Practitioner Family
DX: Z12.4 Encounter for screening for malignant neoplasm of cervix (principal)
CPT/HCPCS: 87624; G0123

== ENCOUNTER 2019-03-06 15:12 | Emergency (ER) | payer BC ==
[~2019-03-06] VITALS: Ht 167.6 cm; Wt 55.7 kg
[~2019-03-06 15:12] MED LIST changes: +SENN-53 PO; -SENN1TAB40 PO
[2019-03-06] MEDS ORDERED: POTA4.25 PO (15:21)
[2019-03-06] MEDS ORDERED: NS 1,000 ML IV SCH (15:38)
[2019-03-06] MEDS ORDERED: KETOROLAC 30 MG/ML VIAL (J1885) IV ONE (15:45)
[2019-03-06] MEDS ORDERED: ONDANSETRON 4MG/2ML VIAL (J2405) IV ONE (15:45)
[2019-03-06 15:58] LABS: BASO % 0.2 % (0.0-1.0); EOS # 0.3 10^3/uL (0.0-0.5); EOS % 3.1 % (0.0-3.0); HEMATOCRIT 39.8 % (36.0-47.0); LYMPH # 3.7 10^3/uL (1.5-5.0); LYMPH % 38.2 % (24.0-44.0); MEAN CORPUSCULAR HEMOGLOBIN 32.2 pg (27.0-33.0); MEAN CORPUSCULAR HGB CONC 32.7 g/dl (32.0-36.5); MEAN CORPUSCULAR VOLUME 98.5 fl (80.0-96.0); MONO # 0.6 10^3/uL (0.0-0.8); MONO % 6.6 % (0.0-5.0); NEUTROPHILS % 51.6 % (36.0-66.0); PLATELET COUNT, AUTOMATED 225 10^3/uL (150-450); RED BLOOD COUNT 4.04 10^6/uL (4.00-5.40); WHITE BLOOD COUNT 9.7 10^3/uL (4.0-10.0)
[2019-03-06 16:30] LABS: HCG, SERUM QUALITATIVE NEGATIVE (NEGATIVE)
[2019-03-06 16:43] LABS: ALBUMIN 3.7 GM/DL (3.2-5.2); ALT/SGPT 20 U/L (12-78); BILIRUBIN,DIRECT < 0.1 MG/DL (0.0-0.2); BILIRUBIN,TOTAL 0.3 MG/DL (0.2-1.0); BLOOD UREA NITROGEN 10 MG/DL (7-18); CALCIUM LEVEL 8.2 MG/DL (8.5-10.1); CARBON DIOXIDE LEVEL 26 MEQ/L (21-32); CHLORIDE LEVEL 111 MEQ/L (98-107); CREATININE FOR GFR 0.74 MG/DL (0.55-1.30); GLOMERULAR FILTRATION RATE > 60.0 (>60); GLUCOSE, FASTING 87 MG/DL (70-100); LIPASE 149 U/L (73-393); POTASSIUM SERUM 3.5 MEQ/L (3.5-5.1); SODIUM LEVEL 143 MEQ/L (136-145); TOTAL PROTEIN 6.7 GM/DL (6.4-8.2)
[2019-03-06] MEDS ORDERED: MACR100C43 PO (17:17)
[2019-03-06] MEDS ORDERED: PROC1AER16 PR (17:17)
[2019-03-06] MEDS ORDERED: IBUP-1022 PO (17:17)
[2019-03-06] MEDS ORDERED: CIPR-249 PO (17:20)
[2019-03-06 17:30] VITALS: BP 114/72
--- NOTE | 2019-03-07 07:51 | REP ---
CT ABDOMEN AND PELVIS WITHOUT IV OR ORAL CONTRAST: HISTORY: Left lower quadrant pain. Question renal colic. Comparison study, June 09, 2018. CT FINDINGS: Preliminary digital blueberry grower radiograph is unremarkable. The lung bases are clear. Liver and spleen remain normal in size, homogeneous in texture. No adrenal abnormalities observed. No abnormalities noted in the pancreas. The gallbladder small and contracted. There are two intrarenal calcifications again noted in the lower pole of the left kidney. There is no evidence of left-sided hydronephrosis. No right-sided stone or right-sided hydronephrosis is seen. The largest sone is 4 mm in diameter. No ureteral calculus is seen. No bladder calculus is observed. There is a right-sided pelvic phlebolith. Small and large intestinal bowel loops are unremarkable. The appendix is not confidently identified, but there is no inflammatory change in the right lower quadrant. There is a small quantity of physiologic fluid in the cul-de-sac. No ovarian or uterine abnormality is seen. IMPRESSION: Two intrarenal calculi persist in the lower pole of the left kidney, unchanged. No hydronephrosis or ureteral stone. No acute intra-abdominal abnormality. Electronically Signed by Chapo Willson MD 03/07/2019 08:55 A
== END 2019-03-06 17:32 | disposition home or self-care (01) ==
LOC: M ED 15:12
DX: N39.0 Urinary tract infection, site not specified (principal); N20.0 Calculus of kidney; K64.8 Other hemorrhoids; Z88.8 Allergy status to other drugs, medicaments and biological substances; Z88.0 Allergy status to penicillin
CPT/HCPCS: 74176; 80048; 80076; 81001; 83690; 84703; 85025; 96361; 96374; 96375; 99284; J1885; J2405

== ENCOUNTER → 2019-03-16 | Outpatient (REF) | payer BC ==
[~2019-03-16] MED LIST changes: +CIPR-249 PO; +IBUP-1022 PO; +MACR100C43 PO; +POTA4.25 PO; +PROC1AER16 PR
== END ==
LOC: M LAB REF 17:30
PROVIDERS: ATTEND Family Medicine
DX: N23 Unspecified renal colic (principal)

== ENCOUNTER → 2019-03-19 | Outpatient (CLI) | payer BC ==
--- NOTE | 2019-03-19 09:36 | REP ---
PA and lateral chest: Comparison 03/21/2017. The lung clayton are clear. The cardiac size is normal. The franco, mediastinum, and skeletal structures are unremarkable except for mild scoliosis convex left at the thoracolumbar junction, unchanged. Impression: Negative PA and lateral chest. Electronically Signed by Shaw Jimenez MD 03/19/2019 09:27 A
[2019-03-19 10:07] LABS: BASO % 0.3 % (0.0-1.0); EOS # 0.2 10^3/uL (0.0-0.5); EOS % 1.6 % (0.0-3.0); HEMATOCRIT 42.8 % (36.0-47.0); HEMOGLOBIN 14.3 g/dl (12.0-15.5); LYMPH # 2.8 10^3/uL (1.5-5.0); LYMPH % 27.8 % (24.0-44.0); MEAN CORPUSCULAR HEMOGLOBIN 32.9 pg (27.0-33.0); MEAN CORPUSCULAR HGB CONC 33.4 g/dl (32.0-36.5); MEAN CORPUSCULAR VOLUME 98.4 fl (80.0-96.0); MONO # 0.7 10^3/uL (0.0-0.8); MONO % 7.1 % (0.0-5.0); NEUTROPHILS # 6.2 10^3/uL (1.5-8.5); NEUTROPHILS % 62.9 % (36.0-66.0); PLATELET COUNT, AUTOMATED 288 10^3/uL (150-450); RED BLOOD COUNT 4.35 10^6/uL (4.00-5.40); WHITE BLOOD COUNT 9.9 10^3/uL (4.0-10.0)
[2019-03-19 11:06] LABS: ALBUMIN 4.5 GM/DL (3.2-5.2); ALT/SGPT 23 U/L (12-78); BILIRUBIN,TOTAL 0.5 MG/DL (0.2-1.0); BLOOD UREA NITROGEN 11 MG/DL (7-18); CALCIUM LEVEL 9.4 MG/DL (8.5-10.1); CARBON DIOXIDE LEVEL 26 MEQ/L (21-32); CHLORIDE LEVEL 106 MEQ/L (98-107); FREE T4 1.33 NG/DL (0.76-1.46); GLOMERULAR FILTRATION RATE > 60.0 (>60); GLUCOSE, FASTING 108 MG/DL (70-100); POTASSIUM SERUM 4.6 MEQ/L (3.5-5.1); SODIUM LEVEL 138 MEQ/L (136-145); THYROID STIMULATING HORMONE 0.706 uIU/ML (0.358-3.740); TOTAL 25(OH) VITAMIN D 16.1 NG/ML (30.0-100.0); TOTAL PROTEIN 7.7 GM/DL (6.4-8.2)
== END ==
LOC: M LAB 08:43
PROVIDERS: ATTEND Family Medicine
DX: R30.0 Dysuria (principal)

== ENCOUNTER → 2019-08-12 | Outpatient (REF) | payer BC | LOC: M SFHCWAGY 17:57 | PROVIDERS: ATTEND Nurse Practitioner Family | DX: Z12.4 Encounter for screening for malignant neoplasm of cervix (principal) ==

== ENCOUNTER 2021-02-18 11:19 | Emergency (ER) | payer BC, OTHER ==
[~2021-02-18] VITALS: Ht 165.1 cm; Wt 56.2 kg
[~2021-02-18 11:19] MED LIST changes: +DOXY-443 PO; -DOXY100C37 PO; -KLOR10TA76 PO; +POTA-136 PO; -SIME180C PO; +SIME180C25 PO
--- NOTE | 2021-02-18 11:56 | REP ---
INDICATION: CHEST PAIN COMPARISON: 03/19/2019 TECHNIQUE: Portable AP view of the chest FINDINGS: The mediastinum and cardiac silhouette are stable and within normal limits for portable technique. The lung clayton are clear without acute consolidation, effusion, or pneumothorax. Skeletal structures are intact. IMPRESSION: No acute cardiopulmonary process appreciated. <Electronically signed by Matthew Cardenas > 02/18/21 [id number]
[2021-02-18 12:06] LABS: BASO % 0.2 % (0.0-1.0); EOS # 0.2 10^3/uL (0.0-0.5); EOS % 1.6 % (0.0-3.0); HEMATOCRIT 43.7 % (36.0-47.0); HEMOGLOBIN 14.7 g/dl (12.0-15.5); LYMPH # 3.3 10^3/uL (1.5-5.0); LYMPH % 28.7 % (24.0-44.0); MEAN CORPUSCULAR HEMOGLOBIN 32.7 pg (27.0-33.0); MEAN CORPUSCULAR HGB CONC 33.6 g/dl (32.0-36.5); MEAN CORPUSCULAR VOLUME 97.3 fl (80.0-96.0); MONO # 0.8 10^3/uL (0.0-0.8); MONO % 6.6 % (2.0-8.0); NEUTROPHILS # 7.2 10^3/uL (1.5-8.5); NEUTROPHILS % 62.6 % (36.0-66.0); PLATELET COUNT, AUTOMATED 255 10^3/uL (150-450); RED BLOOD COUNT 4.49 10^6/uL (4.00-5.40); WHITE BLOOD COUNT 11.4 10^3/uL (4.0-10.0)
[2021-02-18 12:28] LABS: CK-MB VALUE MASS < 1.0 NG/ML (<3.6); CPK CREATINE PHOSPHOKINASE 75 U/L (26-192); MB/CK RELATIVE INDEX 1.33 (< OR =4)
[2021-02-18 12:39] LABS: ALBUMIN 4.1 GM/DL (3.2-5.2); ALT/SGPT 28 U/L (12-78); BILIRUBIN,DIRECT 0.1 MG/DL (0.0-0.2); BILIRUBIN,TOTAL 0.5 MG/DL (0.2-1.0); BLOOD UREA NITROGEN 12 MG/DL (7-18); CARBON DIOXIDE LEVEL 24 MEQ/L (21-32); CHLORIDE LEVEL 108 MEQ/L (98-107); CREATININE FOR GFR 0.75 MG/DL (0.55-1.30); GLOMERULAR FILTRATION RATE > 60.0 (>60); GLUCOSE, FASTING 106 MG/DL (70-100); LIPASE 70 U/L (73-393); NT-PRO BNP 29 PG/ML (<125); POTASSIUM SERUM 4.4 MEQ/L (3.5-5.1); SODIUM LEVEL 138 MEQ/L (136-145); THYROID STIMULATING HORMONE 0.746 uIU/ML (0.358-3.740); TOTAL PROTEIN 7.3 GM/DL (6.4-8.2)
[2021-02-18] MEDS ORDERED: ISOVUE-370 76% 100ML VIAL As Ordered ONE (12:54)
--- NOTE | 2021-02-18 13:23 | REP ---
INDICATION: rule out PE COMPARISON: None. TECHNIQUE: Axial contrast enhanced images from the thoracic inlet to the upper abdomen using pulmonary embolus technique with multiplanar re-formations. 75 ml Isovue 370 intravenous contrast material administered without complication. This CT examination was performed using the following dose reduction techniques: Automated exposure control, adjustment of mA and/or kv according to the patient's size, and use of iterative reconstruction technique. FINDINGS: Satisfactory enhancement of the pulmonary vasculature is achieved and no filling defects are identified to suggest pulmonary embolus. Further evaluation of the mediastinum demonstrates normal thoracic aorta, heart and pericardium. The bilateral lung clayton are well aerated and clear without consolidation pleural effusion or pneumothorax. Tracheobronchial tree is patent. No nodule or mass lesion is identified. No adenopathy noted. Surrounding musculoskeletal structures intact IMPRESSION: No evidence for pulmonary embolus. No acute mediastinal or pleural parenchymal process. <Electronically signed by Matthew Cardenas > 02/18/21 0038
[2021-02-18 13:24] LABS: RSV AMPLIFICATION NEGATIVE (NEGATIVE)
--- NOTE | 2021-02-18 15:58 | REPVR ---
PROCEDURE INFORMATION: Exam: MR Head Without Contrast Exam date and time: 02/18/2021 3:20 PM Age: 35 years old Clinical indication: Dizziness; Additional info: Posterior stroke TECHNIQUE: Imaging protocol: MR of the head without contrast. COMPARISON: No relevant prior studies available. FINDINGS: Brain: No acute infarct identified on the diffusion-weighted imaging. No parenchymal hemorrhage. No evidence of brain parenchymal edema or intracranial mass effect. No significant white matter disease. Mild 5 mm of cerebellar tonsillar ectopia is likely incidental. Cerebral ventricles: Normal. No ventriculomegaly. Bones/joints: Unremarkable. Paranasal sinuses: Normal as visualized. No acute sinusitis. Mastoid air cells: Normal as visualized. No mastoid effusion. Orbital cavity: Unremarkable. Soft tissues: Unremarkable. IMPRESSION: No evidence of acute infarct. Electronically signed by: Elena Dyson On 02/18/2021 15:58:15 PM
--- NOTE | 2021-02-18 16:02 | REPVR ---
PROCEDURE INFORMATION: Exam: MRA Head Without Contrast; Arteriography Exam date and time: 02/18/2021 3:20 PM Age: 35 years old Clinical indication: Headache; Additional info: Posterior stroke TECHNIQUE: Imaging protocol: Magnetic resonance angiography head without contrast. Exam focused on the arteries. COMPARISON: No relevant prior studies available. FINDINGS: ANTERIOR CIRCULATION: Right internal carotid artery: Intracranial segment is patent with no significant stenosis. No aneurysm. Right middle cerebral artery: No occlusion or significant stenosis. No aneurysm. Right anterior cerebral artery: No occlusion or significant stenosis. No aneurysm. Left internal carotid artery: Intracranial segment is patent with no significant stenosis. No aneurysm. Left middle cerebral artery: No occlusion or significant stenosis. No aneurysm. Left anterior cerebral artery: No occlusion or significant stenosis. No aneurysm. POSTERIOR CIRCULATION: Right vertebral artery: No occlusion or significant stenosis. No aneurysm. Left vertebral artery: No occlusion or significant stenosis. No aneurysm. Basilar artery: No occlusion or significant stenosis. No aneurysm. Right posterior cerebral artery: origin. No occlusion or significant stenosis. No aneurysm. Left posterior cerebral artery: No occlusion or significant stenosis. No aneurysm. IMPRESSION: No proximal intracranial arterial occlusion or stenosis seen. Electronically signed by: Elena Dyson On 02/18/2021 16:02:05 PM
--- NOTE | 2021-02-18 16:08 | ECGEPIP ---
[facility] - ED Test Date: 2021-02-18 Pat Name: CARLOS SIMMONS Department: Room: - Gender: Female [employer] Lecturer: Missy [place] : 1985 Requested By: Clarissa Steinberg Order Number: [id number] Reading MD: Clarissa Steinberg Measurements Intervals Rhine Rate: 63 P: 49 IN: 138 QRS: 89 QRSD: 74 T: 60 QT: 400 QTc: 409 Interpretive Statements Normal sinus rhythm Cannot rule out Anterior infarct , age undetermined decreased rate 02/20/18 Electronically Signed on 02-18-2021 16:08:11 EST by Clarissa Steinberg
[2021-02-18 17:30] VITALS: BP 114/76
[2021-02-18] MEDS ORDERED: MECL1TAB31 PO (17:37)
== END 2021-02-18 17:52 | disposition home or self-care (01) ==
LOC: M ED 11:19
DX: R07.9 Chest pain, unspecified (principal); F17.200 Nicotine dependence, unspecified, uncomplicated; Z88.1 Allergy status to other antibiotic agents; Z88.8 Allergy status to other drugs, medicaments and biological substances
CPT/HCPCS: 36415; 70544; 70551; 71045; 71275; 80048; 80076; 82550; 82553; 83690; 83880; 84443; 85025; 87631; 93005; 93041; 94760; 99285; Q9967

== ENCOUNTER → 2021-04-11 | Outpatient (CLI) | payer OTHER ==
[~2021-04-11] MED LIST changes: +MECL1TAB31 PO
[2021-04-11 08:21] LABS: BASO % 0.2 % (0.0-1.0); EOS # 0.3 10^3/uL (0.0-0.5); EOS % 2.5 % (0.0-3.0); LYMPH # 2.9 10^3/uL (1.5-5.0); LYMPH % 29.5 % (24.0-44.0); MEAN CORPUSCULAR HEMOGLOBIN 32.5 pg (27.0-33.0); MEAN CORPUSCULAR HGB CONC 33.3 g/dl (32.0-36.5); MEAN CORPUSCULAR VOLUME 97.4 fl (80.0-96.0); MONO # 0.7 10^3/uL (0.0-0.8); MONO % 7.3 % (2.0-8.0); NEUTROPHILS # 5.9 10^3/uL (1.5-8.5); NEUTROPHILS % 60.4 % (36.0-66.0); PLATELET COUNT, AUTOMATED 240 10^3/uL (150-450); RED BLOOD COUNT 4.31 10^6/uL (4.00-5.40); WHITE BLOOD COUNT 9.8 10^3/uL (4.0-10.0)
[2021-04-11 10:29] LABS: ALBUMIN 3.8 GM/DL (3.2-5.2); ALT/SGPT 23 U/L (12-78); BILIRUBIN,TOTAL 0.6 MG/DL (0.2-1.0); BLOOD UREA NITROGEN 15 MG/DL (7-18); CALCIUM LEVEL 8.9 MG/DL (8.5-10.1); CARBON DIOXIDE LEVEL 25 MEQ/L (21-32); CHLORIDE LEVEL 110 MEQ/L (98-107); CHOLESTEROL LEVEL 156 MG/DL (<200); CHOLESTEROL RISK RATIO 2.736 (<5); FREE T4 1.12 NG/DL (0.76-1.46); GLOMERULAR FILTRATION RATE > 60.0 (>60); GLUCOSE, FASTING 96 MG/DL (70-100); HDL CHOLESTEROL 57 MG/DL (>40); LDL CHOLESTEROL 90 MG/DL (<100); NON-HDL-C 99 MG/DL; POTASSIUM SERUM 4.4 MEQ/L (3.5-5.1); SODIUM LEVEL 141 MEQ/L (136-145); TOTAL 25(OH) VITAMIN D 22.4 NG/ML (30.0-100.0); TOTAL PROTEIN 6.7 GM/DL (6.4-8.2); TRIGLYCERIDES LEVEL 44 MG/DL (<150)
== END ==
LOC: M LAB 07:29
PROVIDERS: ATTEND Family Medicine
DX: E55.9 Vitamin D deficiency, unspecified (principal)

== ENCOUNTER → 2022-04-15 | Outpatient (CLI) | payer OTHER ==
[2022-04-15 10:21] LABS: BASO % 0.3 % (0.0-1.0); EOS # 0.1 10^3/uL (0.0-0.5); EOS % 0.9 % (0.0-3.0); HEMATOCRIT 43.4 % (36.0-47.0); HEMOGLOBIN 14.7 g/dl (12.0-15.5); MEAN CORPUSCULAR HEMOGLOBIN 33.1 pg (27.0-33.0); MEAN CORPUSCULAR HGB CONC 33.9 g/dl (32.0-36.5); MEAN CORPUSCULAR VOLUME 97.7 fl (80.0-96.0); MONO # 0.9 10^3/uL (0.0-0.8); MONO % 6.9 % (2.0-8.0); NEUTROPHILS # 8.4 10^3/uL (1.5-8.5); NEUTROPHILS % 67.6 % (36.0-66.0); PLATELET COUNT, AUTOMATED 272 10^3/uL (150-450); RED BLOOD COUNT 4.44 10^6/uL (4.00-5.40); WHITE BLOOD COUNT 12.4 10^3/uL (4.0-10.0)
[2022-04-15 10:29] LABS: APPEARANCE, URINE CLEAR (CLEAR); BACTERIA, URINE AUTO NEGATIVE (NEGATIVE); BILIRUBIN, URINE AUTO NEGATIVE (NEGATIVE); BLOOD, URINE BLOOD NEGATIVE (NEGATIVE); COLOR, URINE YELLOW (YELLOW); GLUCOSE, URINE (UA) AUTO NEGATIVE (NEGATIVE); KETONE, URINE AUTO TRACE mg/dL (NEGATIVE); LEUKOCYTE ESTERASE, URINE AUTO NEGATIVE (NEGATIVE); MUCUS, URINE SMALL (NEGATIVE); NITRITE, URINE AUTO NEGATIVE (NEGATIVE); PROTEIN, URINE AUTO NEGATIVE (NEGATIVE); RBC, URINE AUTO 0 /HPF (0-3); SPECIFIC GRAVITY URINE AUTO 1.023 (1.002-1.035); SQUAMOUS EPITHELIAL CELL UR AU 1 /HPF (0-6); UROBILINOGEN, URINE AUTO 0.2 mg/dL (0.0-2.0); WBC, URINE AUTO 1 /HPF (0-3)
[2022-04-15 11:22] LABS: THYROID STIMULATING HORMONE 1.216 uIU/ML (0.55-4.78)
[2022-04-15 11:30] LABS: ALBUMIN 3.9 G/DL (3.2-5.2); ALKALINE PHOSPHATASE 57 U/L (46-116); ALT/SGPT 20 U/L (7.0-40); AST/SGOT 21 U/L (<34); BILIRUBIN,TOTAL 0.4 MG/DL (0.3-1.2); BLOOD UREA NITROGEN 12 MG/DL (9-23); CALCIUM LEVEL 8.9 MG/DL (8.5-10.1); CARBON DIOXIDE LEVEL 24 MMOL/L (20-31); CHLORIDE LEVEL 108 MMOL/L (98-107); CHOLESTEROL LEVEL 179 MG/DL (<200); CHOLESTEROL RISK RATIO 2.69 (<5); CREATININE FOR GFR 0.66 MG/DL (0.55-1.30); GLOMERULAR FILTRATION RATE > 60.0 (>60); GLUCOSE, FASTING 102 MG/DL (60-100); HDL CHOLESTEROL 66.4 MG/DL (>40); LDL CHOLESTEROL 103.6 MG/DL (<100); NON-HDL-C 113 MG/DL; POTASSIUM SERUM 4.7 MMOL/L (3.5-5.1); SODIUM LEVEL 139 MMOL/L (136-145); TOTAL PROTEIN 6.8 G/DL (5.7-8.2); TRIGLYCERIDES LEVEL 45 MG/DL (<150)
== END ==
LOC: M LAB 09:39
PROVIDERS: ATTEND Family Medicine
DX: E55.9 Vitamin D deficiency, unspecified (principal)

== ENCOUNTER → 2022-04-30 | Outpatient (CLI) | payer OTHER ==
[2022-04-30 11:01] LABS: HEMOGLOBIN A1c 5.5 % (4.0-6.0)
== END ==
LOC: M LAB 08:11
PROVIDERS: ATTEND Family Medicine
DX: R73.01 Impaired fasting glucose (principal)

== ENCOUNTER → 2023-04-17 | Outpatient (REF) | payer OTHER ==
[~2023-04-17] MED LIST changes: +MECL-209 PO; -MECL1TAB31 PO
== END ==
LOC: M LAB REF 16:53
PROVIDERS: ATTEND Family Medicine
DX: N23 Unspecified renal colic (principal)

== ENCOUNTER 2023-04-30 10:18 | Emergency (ER) | payer OTHER ==
[~2023-04-30] VITALS: Ht 167.6 cm; Wt 58.5 kg
[2023-04-30] MEDS ORDERED: DOXY-443 PO (14:07)
[2023-04-30] MEDS ORDERED: METR-265 PO (14:07)
[2023-04-30 14:17] VITALS: BP 118/71; TEMP 98.8; O2SAT 99
[2023-04-30] MEDS ORDERED: CEFU50TA PO (14:17)
[2023-04-30] MEDS ORDERED: BACT800T5 PO (14:19)
== END 2023-04-30 14:15 | disposition home or self-care (01) ==
LOC: M ED 10:18
DX: S69.91XA Unspecified injury of right wrist, hand and finger(s), initial encounter (principal); W55.01XA Bitten by cat, initial encounter; Y92.9 Unspecified place or not applicable; Y93.9 Activity, unspecified; Y99.0 Civilian activity done for income or pay; Z88.1 Allergy status to other antibiotic agents; Z88.8 Allergy status to other drugs, medicaments and biological substances; Z79.899 Other long term (current) drug therapy

== ENCOUNTER → 2023-05-02 | Outpatient (REF) | payer OTHER ==
[~2023-05-02] MED LIST changes: +BACT800T5 PO; +CEFU50TA PO; +METR-265 PO
[2023-05-02 14:01] LABS: ALKALINE PHOSPHATASE 62 U/L (46-116); ALT/SGPT 23 U/L (7.0-40); AST/SGOT 13 U/L (<34); BASO # 0.1 10^3/uL (0.0-0.2); BASO % 0.5 % (0.0-1.0); BILIRUBIN,TOTAL 0.3 MG/DL (0.3-1.2); BLOOD UREA NITROGEN 15 MG/DL (9-23); CARBON DIOXIDE LEVEL 27 MMOL/L (20-31); CHLORIDE LEVEL 109 MMOL/L (98-107); CHOLESTEROL LEVEL 175 MG/DL (<200); CHOLESTEROL RISK RATIO 2.99 (<5); CREATININE FOR GFR 0.78 MG/DL (0.55-1.30); EOS # 0.3 10^3/uL (0.0-0.5); EOS % 3.1 % (0.0-3.0); GLOMERULAR FILTRATION RATE > 60.0 (>60); GLUCOSE, FASTING 107 MG/DL (60-100); HDL CHOLESTEROL 58.4 MG/DL (>40); HEMATOCRIT 43.4 % (36.0-47.0); HEMOGLOBIN 14.6 g/dl (12.0-15.5); LDL CHOLESTEROL 106.8 MG/DL (<100); LYMPH # 3.2 10^3/uL (1.5-5.0); LYMPH % 33.3 % (24.0-44.0); MEAN CORPUSCULAR HEMOGLOBIN 33.6 pg (27.0-33.0); MEAN CORPUSCULAR HGB CONC 33.6 g/dl (32.0-36.5); MEAN CORPUSCULAR VOLUME 99.8 fl (80.0-96.0); MONO # 0.8 10^3/uL (0.0-0.8); MONO % 8.7 % (2.0-8.0); NEUTROPHILS # 5.2 10^3/uL (1.5-8.5); NEUTROPHILS % 54.2 % (36.0-66.0); NON-HDL-C 116.6 MG/DL; PLATELET COUNT, AUTOMATED 261 10^3/uL (150-450); POTASSIUM SERUM 5.1 MMOL/L (3.5-5.1); RED BLOOD COUNT 4.35 10^6/uL (4.00-5.40); SODIUM LEVEL 138 MMOL/L (136-145); TOTAL PROTEIN 6.6 G/DL (5.7-8.2); TRIGLYCERIDES LEVEL 49 MG/DL (<150); WHITE BLOOD COUNT 9.5 10^3/uL (4.0-10.0)
[2023-05-02 14:04] LABS: FREE T4 1.21 NG/DL (0.89-1.76); THYROID STIMULATING HORMONE 1.498 uIU/ML (0.55-4.78)
== END ==
LOC: M LAB REF 12:56
PROVIDERS: ATTEND Family Medicine
DX: Z13.220 Encounter for screening for lipoid disorders (principal); Z13.29 Encounter for screening for other suspected endocrine disorder; Z13.0 Encounter for screening for diseases of the blood and blood-forming organs and certain disorders involving the immune mechanism

== ENCOUNTER → 2024-05-14 | Outpatient (REF) | payer OTHER ==
[~2024-05-14] MED LIST changes: +DOXY-441 PO; -DOXY-443 PO; -POTA10808; +POTA10809; -SIME180C25 PO; +SIME1CAP4 PO
[2024-05-14 13:43] LABS: BASO % 0.4 % (0.0-1.0); EOS # 0.3 10^3/uL (0.0-0.5); EOS % 3.1 % (0.0-3.0); HEMATOCRIT 42.1 % (36.0-47.0); LYMPH # 3.1 10^3/uL (1.5-5.0); MEAN CORPUSCULAR HEMOGLOBIN 33.5 pg (27.0-33.0); MEAN CORPUSCULAR HGB CONC 33.3 g/dl (32.0-36.5); MEAN CORPUSCULAR VOLUME 100.7 fl (80.0-96.0); MONO # 0.9 10^3/uL (0.0-0.8); MONO % 9.2 % (2.0-8.0); NEUTROPHILS # 5.8 10^3/uL (1.5-8.5); NEUTROPHILS % 57.1 % (36.0-66.0); PLATELET COUNT, AUTOMATED 279 10^3/uL (150-450); RED BLOOD COUNT 4.18 10^6/uL (4.00-5.40); WHITE BLOOD COUNT 10.2 10^3/uL (4.0-10.0)
[2024-05-14 15:38] LABS: ALBUMIN 3.8 G/DL (3.2-5.2); ALKALINE PHOSPHATASE 55 U/L (35-104); ALT/SGPT 22 U/L (7.0-40); AST/SGOT 16 U/L (<34); BILIRUBIN,TOTAL 0.4 MG/DL (0.3-1.2); BLOOD UREA NITROGEN 13 MG/DL (9-23); CALCIUM LEVEL 8.9 MG/DL (8.5-10.1); CARBON DIOXIDE LEVEL 28 MMOL/L (20-31); CHLORIDE LEVEL 105 MMOL/L (98-107); CHOLESTEROL LEVEL 169 MG/DL (<200); CHOLESTEROL RISK RATIO 2.48 (<5); CREATININE FOR GFR 0.72 MG/DL (0.55-1.30); FREE T4 1.23 NG/DL (0.89-1.76); GLOMERULAR FILTRATION RATE > 60.0 (>60); GLUCOSE, FASTING 96 MG/DL (60-100); HDL CHOLESTEROL 67.9 MG/DL (>40); LDL CHOLESTEROL 89.1 MG/DL (<100); NON-HDL-C 101.1 MG/DL; POTASSIUM SERUM 4.9 MMOL/L (3.5-5.1); SODIUM LEVEL 140 MMOL/L (136-145); THYROID STIMULATING HORMONE 1.563 uIU/ML (0.55-4.78); TOTAL 25(OH) VITAMIN D 26.6 NG/ML (20.0-100.0); TOTAL PROTEIN 6.7 G/DL (5.7-8.2); TRIGLYCERIDES LEVEL 60 MG/DL (<150)
== END ==
LOC: M LABDRWAD 13:22
PROVIDERS: ATTEND Family Medicine
DX: E55.9 Vitamin D deficiency, unspecified (principal); Z13.220 Encounter for screening for lipoid disorders; Z13.29 Encounter for screening for other suspected endocrine disorder; Z13.0 Encounter for screening for diseases of the blood and blood-forming organs and certain disorders involving the immune mechanism

== ENCOUNTER 2024-07-06 07:06 | Day surgery (SDC) | payer OTHER ==
[~2024-07-06] VITALS: Ht 167.6 cm; Wt 59.8 kg
[2024-07-06] MEDS ORDERED: LIDOCAINE 2% 100MG/5ML SDV (FOR ANES.) As Ordered ONE (07:36)
[2024-07-06] MEDS ORDERED: propofoL 200 MG/20 ML VIAL As Ordered ONE (07:37)
[2024-07-06] MEDS ORDERED: PHENYLephrine 500MCG 5ML (100MCG/ML) SYRINGE As Ordered ONE (07:37)
[2024-07-06 07:59] VITALS: TEMP 96.3
[2024-07-06 08:15] VITALS: BP 98/57; O2SAT 100
== END 2024-07-06 08:31 | disposition home or self-care (01) ==
LOC: M OPP 07:06
PROVIDERS: ATTEND Surgery
DX: K62.5 Hemorrhage of anus and rectum (principal); K64.1 Second degree hemorrhoids; Z88.1 Allergy status to other antibiotic agents; Z88.8 Allergy status to other drugs, medicaments and biological substances; F17.210 Nicotine dependence, cigarettes, uncomplicated
CPT/HCPCS: 45378; J2371